=== PATIENT | male | born 2000 | race Caucasian/White ===

== ENCOUNTER 2023-06-18 09:56 | Outpatient (CLI) | payer OTHER, SELFPAY ==
--- NOTE | 2023-06-18 10:15 | CRLHL7_ITS ---
For Patients: As a result of the Century Cures Act, medical imaging exams and procedure reports are released immediately into your electronic medical record. You may view this report before your referring provider. If you have questions, please contact your health care provider. Indication: RT SHOULDER INSTABILITY. Procedure : Informed consent was obtained. The site was marked. Time-out was performed. The skin of the right shoulder was cleansed with ChloraPrep. A sterile drape was placed. 8 cc of 1 percent lidocaine was administered for superficial anesthesia. Subsequently a 22 gauge spinal needle was introduced into the right shoulder joint under intermittent fluoroscopic guidance. Injection of 2 cc nonionic Omnipaque 240 contrast confirmed intra-articular location. Subsequently 11 cc of dilute gadolinium were injected. The needle was removed and hemostasis achieved with direct pressure. A dressing was placed. The patient tolerated the procedure well without immediate complication and was immediately sent to MRI for imaging. Total fluoroscopy time 0.20 minutes. Impression: Successful fluoroscopically guided right shoulder arthrogram for MRI. Dictated by Ceasar Haas MD @ 06/18/2023 3:12:28 PM (Electronically Signed)
--- NOTE | 2023-06-18 11:15 | MR_ITS ---
[address] [address] Phone:?[phone] Fax:?[phone] Referring Physician Information: Juliano Martinez M.D. [address] [facility] [address] Phone:?[phone] Fax:?[phone] Patient:Bhavani Hanson D.O.B:?2000 Sex:?Male Phone:?[phone] [facility] MRN:?[id number] Exam Date:?06/18/2023 EXAM: MR ARTHROGRAM OF THE RIGHT SHOULDER CLINICAL: Right shoulder instability. COMPARISON: None available. TECHNICAL: Exam performed after injection of gadolinium based contrast into the right shoulder. Multiplanar multisequence MRI of the right shoulder was obtained. SEDATION: None. CONTRAST: Intra-articular gadolinium based contrast. FINDINGS: Rotator cuff: Supraspinatus/Infraspinatus: No tendinopathy, tear or atrophy. Teres minor: No tendinopathy, tear or atrophy. Subscapularis: Mild increased signal within the tendon and adjacent muscle is likely reflective of sequelae of direct contrast injection. No tendon disruption or retraction. Bursae: Subacromial-subdeltoid: No significant bursal fluid. Subcoracoid: No significant bursal fluid. Coracoacromial arch: Acromion morphology: Type II. No os acromiale. Acromiohumeral space: Within normal limits. Coracohumeral space: Within normal limits. Biceps tendon, long head: Intraarticular and extraarticular segments are intact without rupture, tendinopathy or displacement. Glenohumeral joint: Contrast distends the joint capsule consistent with successful intra-articular injection. Articular cartilage: Small segment of full-thickness chondral loss involves the posterior glenoid adjacent to posterior labral tearing measuring approximately 5 mm in transverse dimension and 5 mm in cranial caudal dimension as seen on axial series 6 image 21 and coronal series 8 image 18. Remainder of the glenohumeral cartilage appears preserved. Capsule: No evidence of capsular thickening or disruption. Labrum: There is tearing of the superior labrum extending posterior to the biceps anchor as seen on coronal series 9 image 16-17. There is tearing throughout the posterior labrum extending from superior to inferior extending into the far inferior labrum on axial series 6 image 19-24 and coronal series 8 image 17-19. No perilabral cyst identified. Bones: There is minimal marrow edema/possible slight reverse Hill-Sachs impaction involving the anterior humeral head on axial series 6 images 18-19. No additional evidence of fracture and there is no current evidence of dislocation. Acromioclavicular joint: There is increased marrow edema with small cystic or erosive changes seen to involve the distal clavicle at the AC joint. Irregularity and increased signal is also seen to involve the acromioclavicular ligament concerning for sequelae of prior sprain injury. There appears to be mild superior positioning of the distal clavicle in relation to the acromion, however the coracoclavicular ligament is intact. No AC joint widening. IMPRESSION: 1. Tearing throughout the entire posterior labrum extending into the far inferior labrum with a small 5 mm chondral defect seen to involve the posterior glenoid. Tearing is also seen to involve the superior labrum. Minimal marrow edema/possible slight reverse Hill-Sachs impaction injury involving the anterior humeral head could reflect sequelae of posterior glenohumeral dislocation injury. 2. Suspect sequelae of prior AC joint injury. Bone marrow edema and small cystic/erosive changes involving the distal clavicle may reflect changes of arthrosis or distal clavicle osteolysis. 3. Mild increased signal within the subscapularis tendon likely reflects sequelae of direct contrast injection. Rotator cuff tendons otherwise appear intact and unremarkable. 4. Normal appearance of the long head biceps tendon. [facility] Electronically signed on 06/19/2023 7:59:00 AM by Carmelo Aparicio D.O.
== END 2023-06-18 09:57 | disposition home or self-care (01) ==
PROVIDERS: PCP Family Medicine; Visit Provider Family Medicine
DX: M25.311 Other instability, right shoulder (principal); S43.431A Superior glenoid labrum lesion of right shoulder, initial encounter; M89.511 Osteolysis, right shoulder
CPT/HCPCS: 23350; 73222; 77002; A9575

== ENCOUNTER 2024-09-28 08:55 | Emergency (ER) | payer SELFPAY ==
--- OUTSIDE RECORDS SUMMARY | 2024-09-28 08:58 | XMS_ITS ---
Author Organization [facility] Address [address] [place], [place] [id number] Care Team Providers Care Table Hand Name Role Phone Shon Hussain Unavailable [phone] Allergies No Known Allergies REASON FOR VISIT establish care Encounters Encounter Location Date Provider Diagnosis [facility] [address] [place] [id number] 12/21/2023 Hussain Menendez Plan Of Treatment No Information Progress Notes * Yohannes NEVESOB:2000 (24 yo M)Acc No.[id number]:12/21/2023 Progress Notes Patient: Darrin ABDULLAHI Provider: Parul Menendez MD, MPH :2000 A ge:23 Y S ex:Male Date:12/21/2023 Address:[address] [place], [place] [id number] Subjective: * Chief Complaints: * 1 . Establish care. * ROS: G eneral/Constitutional: Denies C hange in appetite. D enies C hills. D enies F atigue. D enies F ever. D enies H eadache. D enies L ightheadedness. D enies S leep disturbance. D enies W eight gain, [ ] pounds, weeks. D enies W eight loss. A llergy/Immunology: Denies B listering of skin. D enies C ongestion.?Denies C ough. D enies H zev. D enies I tching. D enies R todd. D enies S neezing. D enies W atery eyes. D enies W heezing. E NT: Denies B locked ear. D enies D ecreased hearing.?Denies D ecreased sense of smell. D enies D ifficulty swallowing. D enies D ry mouth. D enies E ar pain. D enies H earing screen. D enies N osebleed. Denies R inging in the ears. D enies S inus pain. D enies S ore throat. D enies S wollen glands. C ardiovascular: Denies C hest pain at rest. D enies C hest pain with exertion. D enies C laudication. D enies C yanosis. D enies D ifficulty laying flat. D enies D izziness. D enies D yspnea on exertion. D enies F luid accumulation in the legs. D enies I rregular heartbeat. D enies O rthopnea. D enies P alpitations. D enies S hortness of breath. D enies W eakness. D enies?Weight gain. G astrointestinal: Denies A bdominal pain. D enies B lood in stool.?Denies C hange in bowel habits. D enies C onstipation. D enies D ecreased appetite. D enies D iarrhea. D enies D ifficulty swallowing. D enies E xposure to hepatitis. D enies H eartburn. D enies H ematemesis. D enies N ausea.?Denies R ectal bleeding. D enies V omiting. D enies W eight loss. ? M usculoskeletal: Denies C arpal tunnel. D enies J oint stiffness.?Denies L eg cramps. D enies M uscle aches. D enies P ain in shoulder(s). D enies P ainful joints. D enies S ciatica. D enies S wollen joints. D enies Trauma to arm(s). D enies T rauma to hip(s). D enies T rauma to knee(s). D enies T rauma to ankle(s). D enies W eakness. N eurologic: Denies B alance difficulty. D enies C oordination.?Denies D ifficulty speaking. D enies D izziness. D enies F ainting. D enies G ait abnormality. D enies H eadache. D enies I rritability. D enies Loss of strength. D enies L oss of use of extremity. D enies L ow back pain. D enies M guilherme loss. D enies P ain. D enies S eizures. D enies T ics.?Denies T ingling/Numbness. D enies T ransient loss of vision. D enies T remor. P sychiatric: Denies A nxiety. D enies A uditory/visual hallucinations. D enies D elusions. D enies D epressed mood. D enies D ifficulty sleeping. D enies E ating disorder. D enies L oss of appetite. D enies M ental or Physical abuse. D enies S tressors. D enies S ubstance abuse. D enies S uicidal thoughts. * Medical History: M edical History Verified. * Surgical History: D enies Past Surgical History. * Hospitalization/Major Diagno stic Procedure: D enies Past Hospitalization. * Family History: N o Family History documented.. * Medications: N one * Allergies: N .K.D.A. Objective: * Vitals: Assessment: Plan: * Treatment: * Images: * Electronic signature of Keila Menendez MD on 09/28/2024 at 09:57 AM EDT Sign off status: Pending * Provider: Parul Menendez MD, MPH Date: 0 12/21/2023 Generated for Ty anderson/Nadege/Kaiden on: 0 09/28/2024 09:57 AM EDT
--- OUTSIDE RECORDS SUMMARY | 2024-09-28 08:58 | XMS_ITS | Encounter Summary ---
Author Organization [facility] Address [address] [place] [address] Care Team Providers Care Sound Person Name Role Phone Stefano Musa DO Primary Care Provider [phone] Reason for Visit * Reason Comments Follow-up * Outpatient (Routine) - Pending Review Specialty Diagnoses / Procedures Referred By Contac t Referred To Contact Hand Surgery / Orthopaedic Surgery Diagnoses EST RT SHOULDER / NAGHA Procedures ESTABLISHED PATIENT Stefano Musa DO [address] [place] [address] Phone: tel: fax: Cong Leal MD [address] [address] Phone: tel: fax: Referral ID Status Reason Start Date Expiration Date V isits Requested Visits Authorized [id number] Pending Review 08/14/2024 08/15/2025 12 12 Encounter Details Date Type Department Care Team (Late st Contact Info) Description 08/14/2024 9:00 AM EST Office Visit [facility] [address] [facility], [address]th [place] [address] Cong Leal MD [address] [id number] Labral tear of shoulder, right, initial encounter (Primary Dx); Periscapular pain of right shoulder Social History Tobacco Use Types Packs/Day Years Used Date Smoking Tobacco: Never Smokeless Tobacco: Never Alcohol Use Standard Drinks/Week Comments Yes 0 (1 standard drink = 0.6 oz pur e alcohol) occasional Humiliation, Afraid, Rape, and Kick questionnair e Answer Date Recorded Within the last year, have y ou been afraid of your partner or ex-partner? No 07/06/2023 Within the last year, have y ou been humiliated or emotionally abused in other ways by your partner or ex-partner? No Within the last year, have y ou been kicked, hit, slapped, or otherwise physically hurt by your partner or ex-partner? No 07/06/2023 Within the last year, have y ou been raped or forced to have any kind of sexual activity by your partner or ex-partner? No 07/06/2023 Social Connection and Isolation Panel Answer Date Recorded In a typical week, how many times do you talk on the phone with family, friends, or neighbors? More than three times a week 07/06/2023 How often do you get togethe r with friends or relatives? Three times a week 07/06/2023 How often do you attend chur or hoahaoism services? Patient declined 07/06/2023 Do you belong to any clubs o r organizations such as jehovah's witness groups, unions, fraternal or athletic groups, or school groups? Yes 07/06/2023 How often do you attend meet ings of the clubs or organizations you belong to? More than 4 times per year 07/06/2023 Are you , , di vorced, , never , or living with a partner? Never 07/06/2023 AUDIT-C Answer Date Recorded Q1: How often do you have a drink containing alc ohol? Patient declined 07/06/2023 Q2: How many drinks containi ng alcohol do you have on a typical day when you are drinking? Patient declined 07/06/2023 Q3: How often do you have si x or more drinks on one occasion? Patient declined 07/06/2023 Overall Financial Resource Strain (CARDIA) Answe r Date Recorded How hard is it for you to pa y for the very basics like food, housing, medical care, and heating? Patient declined 07/06/2023 [place] - Occupational Stress Questionnaire Answer Date Recorded Do you feel stress - tense, restless, nervous, or anxious, or unable to sleep at night because your mind is troubled all the time - these days? Not at all 07/06/2023 Exercise Vital Sign Answer Date Recorde d On average, how many days pe r week do you engage in moderate to strenuous exercise (like a brisk walk)? 4 days 07/06/2023 On average, how many minutes do you engage in exercise at this level? 40 min 07/06/2023 Hunger Vital Sign Answer Date Recorded Within the past 12 months, y ou worried that your food would run out before you got the money to buy more. Patient declined Within the past 12 months, t he food you bought just didn't last and you didn't have money to get more. Patient declined PRAPARE - Transportation Answer Date Re corded In the past 12 months, has l ack of transportation kept you from medical appointments or from getting medications? Patient declined 07/06/2023 In the past 12 months, has l ack of transportation kept you from meetings, work, or from getting things needed for daily living? Patient declined 07/06/2023 Housing Stability Vital Sign Answer Bigg e Recorded In the last 12 months, was t here a time when you were not able to pay the mortgage or rent on time? Patient refused 07/06/20 23 Number of Places Lived in the Last Year Not on f ile 07/06/2023 In the last 12 months, was t here a time when you did not have a steady place to sleep or slept in a skilled nursing (including now)? Patient refused 07/06/2023 Caregiver Education and Work Answer Bigg e Recorded Opt Out of Tobacco Outreach No 10/10 Opt Out of Tobacco Outreach No 10/10 Safety and Environment Answer Date Husam rded Opt Out of Tobacco Outreach No 10/10 Opt Out of Tobacco Outreach No 10/10 Opt Out of Tobacco Outreach No 10/10 Opt Out of Tobacco Outreach No 10/10 Caregiver Health Answer Date Recorded Opt Out of Tobacco Outreach No 10/10 Opt Out of Tobacco Outreach No 10/10 Opt Out of Tobacco Outreach No 10/10 Child Education Answer Date Recorded Opt Out of Tobacco Outreach No 10/10 Opt Out of Tobacco Outreach No 10/10 Opt Out of Tobacco Outreach No 10/10 Adolescent Substance Use Answer Date Re corded Opt Out of Tobacco Outreach No 10/10 Opt Out of Tobacco Outreach No 10/10 Opt Out of Tobacco Outreach No 10/10 [place] Short Social Needs Screening - Social Connect ion Answer Date Recorded Would you like help with any of the following needs: food, medicine/medical supplies, transportation, loneliness, housing or utilities? Not on file 11/27/2023 [place] Short Social Needs Screen ing - Medical Financial Resource Strain Answer Date Recorded Would you like help with any of the following needs: food, medicine/medical supplies, transportation, loneliness, housing or utilities? Not on file 07/16/2023 [place] Short Social Needs Screening - Food Insecurit y Answer Date Recorded Would you like help with any of the following needs: food, medicine/medical supplies, transportation, loneliness, housing or utilities? See other domains 06/30/2023 Would you like help with any of the following needs: food, medicine/medical supplies, transportation, loneliness, or housing/utilities? Not on file 06/30/2023 [place] Short Social Needs Screening - Transportation Answer Date Recorded Would you like help with any of the following needs: food, medicine/medical supplies, transportation, loneliness, housing or utilities? Not on file 07/16/2023 [place] Short Social Needs Screening - Housing Answer Date Recorded Would you like help with any of the following needs: food, medicine/medical supplies, transportation, loneliness, housing or utilities? Not on file 07/16/2023 Sex and Gender Information Value Date Recorded Sex Assigned at Not on file Legal Sex Male 7:01 PM EDT Gender Identity Not on file Sexual Orientation Not on file documented as of this encounter Last Filed Vital Signs Vital Sign Reading Time Taken Comments Blood Pressure - - Pulse - - Temperature - - Respiratory Rate - - Oxygen Saturation - - Inhaled Oxygen Concentration - - Weight 118 kg (260 lb) 08/14/2024 8:44 AM EST Height 175.3 cm (5' 9) 08/14/2024 8:44 AM EST Body Mass Index 38.4 08/14/2024 8:44 AM EST documented in this encounter Progress Notes * BANDAR Love - 08/14/2024 9:00 AM EST 1 * BANDAR Love - 08/14/2024 8:42 AM EST CHIEF COMPLAINT: Recheck right shoulder labral repair from August 17, 2023. HISTORY OF PRESENT ILLNESS: Mr. Hanson, a 24-year-old right-hand dominant male who presents almost a year from surgery. He denies fevers or chills. Denies numbness or tingling. He states overall he is doing pretty well regarding the shoulder itself. Has noticed some discomfort around his scapula when he is working out. He states it does bother him and has a hard time sleeping on that side. No other complaints. Denies fevers or chills. Denies numbness or tingling. PHYSICAL EXAMINATION: Patient alert and oriented times 3, in no distress in office, is neurovascularly intact. Sensation intact to light touch. Maintains full range of motion. Rotator cuff strength throughout is 5/5. Does have tenderness to palpation with noted trigger point to or around the periscapular muscles. LABORATORY AND DIAGNOSTIC DATA: No x-rays completed today. IMPRESSION AND PLAN: Mr. Hanson, a 24-year-old right-hand dominant male who presents almost a year from right shoulder labral repair back in August 2023. He is doing well regarding his range of motion and strength. He does have some trigger points to and around the periscapular muscles. Recommended some techniques to help work this out. Patient will follow up on as-needed basis. Dictated By: BANDAR WESTBROOK - [id number] 08/14/2024 09:00:28 AM 08/14/2024 09:10:23 AM Docked: [id number] Receipt Code: [id number] CC: documented in this encounter Plan of Treatment Not on file documented as of this encounter Goals Goal Patient Goal Type Associated Problems Recent Progress Patient-Stated? Author [P.T. LTG] x 12 visits Physical Therapy: Cover Remover Goal No Dena Barrios PT Note: Patient will demonstrate independence in comprehensive HEP to facilitate independence upon discharge. [P.T. LTG] x 12 visits Physical Therapy: Cover Remover Goal No Dena Barrios PT Note: Patient will demonstrate ability to tolerate resistance at end range upright ER and IR to facilitate progress toward senior care goals. [P.T. LTG] x 12 visits Physical Therapy: Nursing Home Goal No Dena Barrios PT Note: Patient will demonstrate ability to complete standard push up without onset of pain to facilitate progress toward resuming activity at prior level. [P.T. STG] x 6 visits Physical Therapy: Short Term Goal No Dena Barrios PT Note: Patient will demonstrate independence in introductory HEP to facilitate progress toward long-term goals. [P.T. STG] x 6 visits Physical Therapy: Short Term Goal No Dena Barrios PT Note: Patient will demonstrate full AROM of the right shoulder without onset of pain to facilitate progress toward senior care goals. documented as of this encounter Visit Diagnoses Diagnosis Labral tear of shoulder, right, initial encounter- Primary Periscapular pain of right shoulder documented in this encounter Care Teams Sound Person Relationship Specialty Start Date End Date Stefano Musa DO [address] [place] [address] PCP - General Family Medicine 06/28/23 documented as of this encounter
--- OUTSIDE RECORDS SUMMARY | 2024-09-28 08:58 | XMS_ITS | Clinical Summary ---
Author Organization [facility] Address [address] [place] [address] Care Team Providers Care Graphics Intern Name Role Phone Stefano Musa Primary Care Provider [phone] Allergies No known active allergies Medications atorvastatin (LIPITOR) 20 mg tablet Take 20 mg by mouth every night at bedtime. Active fenofibrate (TRICOR) 48 mg tablet Take 48 mg by mouth 1 (one) time each day. Active omeprazole (PriLOSEC) [address] capsule Take 20 mg by mouth 1 (one) time each day. Do not crush or chew. Active cholecalciferol (VITAMIN D-3) 5,000 Units tablet Take by mouth. Active famotidine (PEPCID) 40 mg tablet Take by mouth. Active Active Problems No known active problems Encounters Date Type Department Care Team Description 08/14/2024 9:00 AM EST Office Visit [facility] [place] [address] [facility], [address] [place] [address] Cong Leal MD Labral tear of shoulder, right, initial encounter (Primary Dx); Periscapular pain of right shoulder from Last 3 Months Immunizations Name Administration Dates Next Due DTaP (CVX 20) 08/11/2006, 4,01/09/2003,11/02,2002 HPV, Quadrivalent (CVX 62) 04/19/2015,01/18/2014 Hep A, Unspecified (CVX 85) 08/15/2010,0 11/29/2009,02/09/2006,08/11 Hep B / HiB (CVX 51) 2002 Hep B, Unspecified 01/09/2003,2002 HiB 06/22/2003,04/05/2003,2002 IPV (CVX 10) 08/11/2006, 3,2002,08/16 Influenza, Quadrivalent, PF (CVX 150) 06/04/2021 ,06/29/2016,04/19/2015 Influenza, seasonal, injecta ble, PF (CVX 140) 07/14/2024,04/25/2018,07/17/2017 MMR (CVX 3) 08/11/2006,06/22/2003 Meningococcal B Vaccine, Rec ombinant (CVX 162) 12/18/2020,02/04/2019 Meningococcal MCV4, Unspecif ied (CVX 147) 01/18/2014 Meningococcal MCV4P (CVX 114) 06/29/2016 Pneumococcal Conjugate PCV 7 (CVX 100) 3,04/05/2003,2002 Tdap (CVX 115) 02/23/2014 Varicella (CVX 21) 08/11/2006,10/08/2003 Family History Medical History Relation Name Comments Cancer Maternal Grandmother Ag[place] Diabetes Maternal Grandmother Agata Relation Name Status Comments Maternal Grandmother Agata Social History Tobacco Use Types Packs/Day Years Used Date Smoking Tobacco: Never Smokeless Tobacco: Never Tobacco Cessation:Counseling Given: Not Answered Alcohol Use Standard Drinks/Week Comments Yes 0 [...] 07/06/2023 How often do you attend chur ch or episcopalian services? Patient declined 07/06/2023 Do you belong to any clubs o r organizations such as anabaptist groups, unions, fraternal or athletic groups, or [...] medical care, and heating? Patient declined 07/06/2023 [facility] - Occupational Stress Questionnaire Answer Date Recorded [...] place to sleep or slept in a correction (including now)? Patient refused 07/06/2023 Caregiver Education [...] on file Sexual Orientation Not on file Last Filed Vital Signs Vital Sign Reading Time Taken Comments Blood Pressure 118/82 08/17/2023 3:35 PM EST Pulse 99 08/17/2023 3:35 PM EST Temperature 37 C (98.6 F) 08/17/2023 8:52 AM EST Respiratory Rate 20 08/17/2023 3:35 PM EST Oxygen Saturation 99% 08/17/2023 3:35 PM EST Inhaled Oxygen Concentration - - Weight 118 kg (260 lb) 08/14/2024 8:44 AM EST Height 175.3 cm (5' 9) 08/14/2024 8:44 AM EST Body Mass Index 38.4 08/14/2024 8:44 AM EST Plan of Treatment Health Maintenance Due Date Last Done Comments Hepatitis C Screening 2002 Depression Screening 2014 DTaP,Tdap,and Td Vaccines (7 - Td or Tdap) 02/24/2024 02/23/2014, 08/11/2006, 10/08/2003, Additional history exists COVID-19 Vaccine ( season) 2024 06/30/2022, 06/09/2021, 11/16/2020, Additional history exists Diabetes Screening 12/30/2026 12/31/2023 HIV Screening 12/30/2026 12/31/2023 RSV women or 60 years and older (1 - 1-dose 75+ series) 2077 Hepatitis B Vaccines Completed 01/09/2003, 2002, 2002 HIB Vaccines Completed 06/22/2003, 03/13, 2002, Additional history exists Pneumococcal Vaccine: Pediatrics (0 to 5 Years) and At-Risk Patients (6 to 49 Years) Aged Out 06/22/2003, 04/05/2003, 2002 No longer eligible based on patient's age to complete this topic IPV Vaccines Completed 08/11/2006, 07/2002, 2002, Additional history exists MMR Vaccines Completed 08/11/2006, 06/22/2003 Varicella Vaccines Completed 08/11/2006, 10/08/2003 Hepatitis A Vaccines Completed 08/15/2010, 11/29/2009, 02/09/2006, Additional history exists HPV Vaccines Completed 04/19/2015, 01/18/2014 Meningococcal ACWY Aged Out 06/29/2016, 01/18/2014 No longer eligible based on patient's age to complete this topic Meningococcal B Vaccine Completed 12/18/2020, 02/04 Lipid Panel Discontinued 12/31/2023 Influenza Vaccine Completed 07/14/2024, , 04/25/2018, Additional history exists RSV patients under 20 months Aged Out No longer eligible based on patient's age to complete this topic Goals Goal Patient Goal Type Associated Problems Recent Progress Patient-Stated? Author [P.T. LTG] x 12 visits Physical Therapy: Usp Goal No Dena Barrios, PT Note: Patient will demonstrate independence in comprehensive HEP to facilitate independence upon discharge. [P.T. 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 [P.T. LTG] x 12 visits Physical Therapy: Copy Preparer Goal No Dena Barrios, PT Note: Patient will demonstrate ability to complete standard push up without onset of pain to facilitate progress toward resuming activity at prior level. [P.T. STG] x 6 visits Physical Therapy: Short Term Goal No Dena Barrios, PT Note: Patient will demonstrate independence in introductory HEP to facilitate progress toward long-term goals. [P.T. 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 Medical Devices Implanted Type Area [employer] Boatswain'S Mate Device Identifier Shelf Expiration Date Model / Serial / Lot [place] Suture Fibertak 1.8mm Knotless Soft Gen2 - Sna - [id number] Implanted:Qt y: 3 on 08/17/2023 by Cong Leal MD at [facility] - Other Right: Shoulder ARTHREX [id number] 05/11/2028 AR-3636 / NA / [id number] Insurance AMB[employer] Care Teams Graphics Intern Relationship Specialty Start Date End Date Stefano Musa DO [address] [place] [address] PCP - General Family Medicine 06/28/23
--- OUTSIDE RECORDS SUMMARY | 2024-09-28 08:58 | XMS_ITS | Patient Health Record ---
Author Organization [facility] Address [address] [facility] [address] [place] [address] Care Team Providers Care Oil Transport Driver Name Role Phone Stefano Musa Unavailable [phone] Allergies No Known Allergies Reason For Referral No Information Medications Medication SIG (Take, Route, Frequency, Duration) Notes Start Date End Date Status Famotidine 40 MG 1 tablet at bedtime Orally Once a day for 90 days 01/26/2023 Not-Taking Atorvastatin Calcium 10 MG 1 tablet Orally Once a day for 90 days Active Omeprazole 20 MG 1 capsule 30 minutes before morning meal Orally Once a day for 90 days 01/26/2023 Not-Taking Famotidine 40 MG 1 tablet at bedtime Orally Once a day for 90 days Active Cetirizine HCl 10 MG 1 tablet Orally Onc e a day for 90 days 01/26/2023 Active Fenofibrate 160 MG 1 tablet Orally Once a day for 90 days 02/02/2023 Active Gemfibrozil 600 MG 1 tablet 30 minutes before morning and evening meals Orally Twice a day for 90 days 01/26/2023 Not-Taki ng Omeprazole 20 MG 1 capsule 30 minutes before morning meal Orally Once a day for 90 days Active Atorvastatin Calcium 10 MG 1 tablet Orally Once a day for 90 days 01/26/2023 Not-Taking Claritin 10 MG 1 tablet Orally Once a day. When need Not-Taking Gemfibrozil 600 MG 1 tablet 30 minutes before morning and evening meals Orally Twice a day Active Fluticasone Propionate 93 MCG/ACT 2 sprays (1 spray in each nostril) Nasally Twice a day for 90 days 01/26/2023 Not-Taki ng Social History Tobacco Use: Social History Observation Description Date Details (start date - stop date) Never Smoker NA - NA Tobacco Use/Smoking Question Answer Notes Are you a nonsmoker Alcohol Screen (Audit-C) Question Answer Notes Did you have a drink containing alcohol in the p ast year? No Points 0 Interpretation Negative Tobacco use other than smoking: Question Answer Notes Are you an other tobacco user? No Problems Problem Type SNOMED Code ICD Code Onset Dates Problem Status W/U Status Risk Notes Problem 977084952 Mixed hyperlipid emia (E78.2) Active confirmed Problem Body mass index 35.00 to 39.99 (46931017595 4105) Body mass index (BMI) 38.0-38.9, adult (Z68.38) 02/05/20 23 Active confirmed Problem 214339542 Gastroesophageal reflux disease without esophagitis (K21.9) Active confirmed Problem 70517216 Vitamin D defici ency (E55.9) Active confirmed Problem 832330425 Hypertriglycerid emia (E78.1) Active confirmed Problem 846848667 Seasonal allergi c rhinitis due to other allergic trigger (J30.89) Active confirmed Plan Of Treatment Pending Test Test Name Order Date PHQ9 01/26/2023 Future Test Test Name Order Date Vitamin D, 1,25 + 25-Hydroxy 06/28/2023 CBC With Differential/Platelet Vitamin B12 and Folate 08/05/2023 Hemoglobin A1c 08/05/2023 Urinalysis, Routine 08/05/2023 Lipid Panel 08/05/2023 Vitamin D, 1,25 + 25-Hydroxy 08/05/2023 CMP14+[id number] 08/05/2023 T3F+T4F+TSH 08/05/2023 Insurance Providers Payer Name Payer Address Payer Phone Subscriber Number Group Number Insured Name Patient Relationship to Insured Coverage Start Date Coverage End Date [id number] [address] [address] [place] [id number] [phone] [id number] Darrin Hanson Self - patient is the insured Medical (General) History Medical History History ICD Code GERD obesity Hypercholesterolemia / Dyslipidemia
--- OUTSIDE RECORDS SUMMARY | 2024-09-28 08:58 | XMS_ITS ---
Author Organization [facility] Address [address] [facility] [address] [place] [address] Care Team Providers Care Deckhand Engineer Name Role Phone Stefano Toney Unavailable [phone] Allergies No Known Allergies Reason For Referral Reason Patient injured his right shoulder playing football in college and had an MRI done which shows tearing throughout the entire posterior labrum extending into the far labrum with a small 5 mm chondral defectseen to involve the posterior glenoid. Tearing also seen in the superior labrum. There is a slight reverse Hill-Sachs impaction injury involving the anterior humeral head. injury also noted of the distal clavicle. Patient prefers Dr. Phipps in [facility] at [address] [place] [address]. Diagnosis 1 Acute pain of right shoulder (M25.511) Referral Organization [facility] Referring Provider First Name Stefano Referring Provider Last Name Lencho Referring Provider Speciality [facility] Referred Provider DOUG PHIPPS Referred Provider Specialty XOrthopedic Procedure 1 New Patient (71042) Procedure 2 Follow-up (20362) Clinical Notes Mj Gerber 023 08:06:50 AM >No Auth Needed Fax Buzz Holden Pedro 06/29/2023 01:59:38 PM >Patient informed Referral Priority Urgent REASON FOR VISIT f/up Medications Medication SIG (Take, Route, Frequency, Duration) Notes Start Date End Date Status Famotidine 40 MG 1 tablet at bedtime Orally Once a day for 90 days 01/26/2023 Not-Taking Omeprazole 20 MG 1 capsule 30 minutes before morning meal Orally Once a day for 90 days 01/26/2023 Not-Taking Fenofibrate 160 MG 1 tablet Orally Once a day for 90 days 02/02/2023 Active Ergocalciferol 1.25 MG (33372 UT) 1 capsule Orally once a week for 90 days 02/02/2023 12/25/2023 Active Gemfibrozil 600 MG 1 tablet 30 minutes before morning and evening meals Orally Twice a day Active Atorvastatin Calcium 10 MG 1 tablet Orally Once a day for 90 days Active Famotidine 40 MG 1 tablet at bedtime Orally Once a day for 90 days Active Cetirizine HCl 10 MG 1 tablet Orally Onc e a day for 90 days 01/26/2023 Active Gemfibrozil 600 MG 1 tablet 30 minutes before morning and evening meals Orally Twice a day for 90 days 01/26/2023 Not-Taking Atorvastatin Calcium 10 MG 1 tablet Orally Once a day for 90 days 01/26/2023 Not-Taking Omeprazole 20 MG 1 capsule 30 minutes before morning meal Orally Once a day for 90 days Active Claritin 10 MG 1 tablet Orally Once a day. When need Not-Taking Fluticasone Propionate 93 MCG/ACT 2 sprays (1 spray in each nostril) Nasally Twice a day for 90 days 01/26/2023 Not-Taking Social History Alcohol Screen (Audit-C) Question Answer Notes Did you have a drink containing alcohol in the p ast year? No Points 0 Interpretation Negative Vital Signs Temperature 97.5 degrees Fahrenheit 06/28/20 23 Blood pressure systolic 130 mm Hg 06/28/20 23 Blood pressure diastolic 80 mm Hg 023 Heart Rate 84 /min 06/28/2023 Respiratory Rate 18 /min 06/28/2023 Height 5'8'' ft 06/28/2023 Weight 264 lbs 06/28/2023 BMI 40.14 kg/m2 06/28/2023 Oximetry 99 % 06/28/2023 Weight-kg 119.75 kg 06/28/2023 Encounters Encounter Location Date Provider Diagnosis [facility] (DO NOT USE) [address] [facility] [place] [address] 06/28/2023 Stefano Toney Seasonal allergic rh initis due to other allergic trigger J30.89 ; Acute pain of right shoulder M25.511 ; Hypertriglyceridemia E78.1 ; Gastroesophageal reflux disease without esophagitis K21.9 ; Vitamin D deficiency E55.9 ; Screening for STD (sexually transmitted disease) Z11.3 and Screening for diabetes mellitus Z13.1 Assessments Encounter Date Diagnosis (ICD Code) Assessment Notes Treatment Notes Treatment Clinical Notes Section Notes 06/28/2023 Acute pain of right shoulder (ICD-10 - M25.511) Patient is seen for his right shoulder pain and he injured his right shoulder playing football in [place] in college. Patient had an MRI done in [place] which showed a torn labrum and problems with his glenoid. He also had some findings on his distal clavicle. Patient will be referred to orthopedic surgery. Patient prefers Dr. Hayes from the [facility]. 06/28/2023 Seasonal allergic rhinitis due to other allergic trigger (ICD-10 - J30.89) Patient has allergic rhinitis and will continue his cetirizine 10 mg once a day. Refill was given. 06/28/2023 Hypertriglyceridemia (ICD-10 - E78.1) Patient has mixed hyperlipidemia and severe hypertriglycerid emia. Patient will be given refills of his atorvastatin and his fenofibrate. Patient's labs will be redrawn in the next couple weeks. 06/28/2023 Gastroesophageal ref lux disease without esophagitis (ICD-10 - K21.9) Patient's GERD symptoms are controlled with famotidine 40 mg once a day and omeprazole 40 mg once a day. Patient will continue these. 06/28/2023 Vitamin D deficiency (ICD-10 - E55.9) Patient has vitamin D deficiency and will continue his ergocalciferol once a week. 06/28/2023 Screening for STD (sexually transmitted disease) (ICD-10 - Z11.3) 06/28/2023 Screening for diabet es mellitus (ICD-10 - Z13.1) Plan Of Treatment Medication Medication Name Sig Start Date Stop Date Notes Fenofibrate 160 MG 1 tablet Orally Once a day for 90 days 02/02/2023 Ergocalciferol 1.25 MG (5000 0 UT) 1 capsule Orally once a week for 90 days 02/02/2023 12/25/2023 Atorvastatin Calcium 10 MG 1 tablet Oral ly Once a day for 90 days Famotidine 40 MG 1 tablet at bedtime Orally Once a day for 90 days Cetirizine HCl 10 MG 1 tablet Orally Onc e a day for 90 days 01/26/2023 Omeprazole 20 MG 1 capsule 30 minutes before morning meal Orally Once a day for 90 days Future Test Test Name Order Date Vitamin D, 1,25 + 25-Hydroxy 06/28/2023 Referrals Referral Date Details 06/28/2023 06/28/2023, Patient injured his right shoulder playing football in college and had an MRI done which shows tearing throughout the entire posterior labrum extending into the far labrum with a small 5 mm chondral defectseen to involve the posterior glenoid. Tearing also seen in the superior labrum. There is a slight reverse Hill-Sachs impaction injury involving the anterior humeral head. injury also noted of the distal clavicle. Patient prefers Dr. Phipps in [facility] at [address] [place] [address] DOUG PHIPPS Next Appt Details Follow Up: 3 Weeks, Reason: lab results Progress Notes * Yohannes NEVESOB:2000 (23 yo M)Acc No.[id number]:06/28/2023 Progress Notes Patient: Darrin ABDULLAHI Provider: Nancy TONEY DO :2000 A ge:23 Y S ex:Male Date:06/28/2023 Phone: Address:[address] [place] [address], [facility], [id number] Subjective: * Chief Complaints: * F /up * HPI: H istory of Present Illness: Patient is seen for follow-up visit to discuss an MRI results that he had done up in [place] when he was in college. Patient has not been able to get his labs done yet but will do them here this week. Patient would also like added to the labs test for STDs. Patient was playing football up in [place] college and he injured his right shoulder. The MRI shows complete labrum tear and some issues with his clavicle. Patient will be referred to orthopedic surgery he would like to see Dr. Hayes from the [facility]. Referral was placed and lab work was ordered. Patient will also be given refills of his medications as he is starting to run out of them. P re Visit Planning: Not pending Specialist Notes A s of 1 08/25/2022 * ROS: R akilw of Systems: Constitutional D enies:, Chills, Night sweats, Fever. E yes D enies:, Blurred Vision, Discharge, Redness, Pain. O tolaryngologic D enies:, Epistaxis, Ear pain, rhinorrhea. C ardiovascular D enies:, Chest pain, Shortness of breath, Palpitations. R espiratory D enies:, Wheezing, Shortness of breath, Cough. G astrointestinal D enies:, Nausea, Vomiting, Constipation, Heartburn, Diarrhea, Abdominal pain. G enitourinary D enies:, Dysuria, Polyuria, Hematuria. M usculoskeletal R eports: right shoulder pain with some minor limitations in motion.. N eurological D enies:, Dizziness, Confusion, Memory loss, Numbness/Tingling, Focal numbness or weakness. E ndocrine?Denies:, Polyphagia, Polydipsia, Polyuria. B reast D enies:, Pain, Swelling, Lump or mass, Skin changes. P sychiatry D enies:, Depressed mood, Anxiety, Suicidal ideation, Homicidal ideation. S kin D enies:, Skin rash, Lesions, Wound. * Medical History: * Surgical History: D enies Past Surgical History * Hospitalization/Major Diagno stic Procedure: D enies Past Hospitalization * Family History: M other: alive 52 yrs. F ather: alive 55 yrs. * Social History: D rugs/Alcohol: D rugs H ave you used drugs other than those for medical reasons in the past 12 months? N o Alcohol Screen (Audit-C) D id you have a drink containing alcohol in the past year? N o P oints 0 I nterpretation N egative Caffeine I ntake: n one Do you smoke marijuana?: Denies. Do you drink alcohol?: No. * Medications: T akingFenofibrate 160 MG Tablet 1 tablet Orally Once a day Ergocalciferol 1.25 MG (00201 UT) Capsule 1 capsule Orally once a week , stop date 01/28/2024Gemfibrozil 600 MG Tablet 1 tablet 30 minutes before morning and evening meals Orally Twice a day Famotidine 40 MG Tablet 1 tablet at bedtime Orally Once a day Atorvastatin Calcium 10 MG Tablet 1 tablet Orally Once a day Omeprazole 20 MG Capsule Delayed Release 1 capsule 30 minutes before morning meal Orally Once a day Cetirizine HCl 10 MG Tablet 1 tablet Orally Once a day Taking Fenofibrate 160 MG Tablet 1 tablet Orally Once a day Taking Ergocalciferol 1.25 MG (75828 UT) Capsule 1 capsule Orally once a week , stop date 01/28/2024Taking Gemfibrozil 600 MG Tablet 1 tablet 30 minutes before morning and evening meals Orally Twice a day Taking Famotidine 40 MG Tablet 1 tablet at bedtime Orally Once a day Taking Atorvastatin Calcium 10 MG Tablet 1 tablet Orally Once a day Taking Omeprazole 20 MG Capsule Delayed Release 1 capsule 30 minutes before morning meal Orally Once a day Taking Cetirizine HCl 10 MG Tablet 1 tablet Orally Once a day Not-TakingFluticasone Propionate 93 MCG/ACT Exhaler Suspension 2 sprays (1 spray in each nostril) Nasally Twice a day Claritin 10 MG Tablet 1 tablet Orally Once a day. When need Atorvastatin Calcium 10 MG Tablet 1 tablet Orally Once a day Gemfibrozil 600 MG Tablet 1 tablet 30 minutes before morning and evening meals Orally Twice a day Omeprazole 20 MG Capsule Delayed Release 1 capsule 30 minutes before morning meal Orally Once a day Famotidine 40 MG Tablet 1 tablet at bedtime Orally Once a day Medication List reviewed and reconciled with the patientNot- Taking Fluticasone Propionate 93 MCG/ACT Exhaler Suspension 2 sprays (1 spray in each nostril) Nasally Twice a day Not-Taking Claritin 10 MG Tablet 1 tablet Orally Once a day. When need Not-Taking Atorvastatin Calcium 10 MG Tablet 1 tablet Orally Once a day Not-Taking Gemfibrozil 600 MG Tablet 1 tablet 30 minutes before morning and evening meals Orally Twice a day Not-Taking Omeprazole 20 MG Capsule Delayed Release 1 capsule 30 minutes before morning meal Orally Once a day Not-Taking Famotidine 40 MG Tablet 1 tablet at bedtime Orally Once a day Medication List reviewed and reconciled with the patient * Allergies: N .K.D.A.no[Allergies Verified] Objective: * Vitals: T emp:97.5F, HR:84/min, RR:18/min, BP:130/80mm Hg, Wt:264lbs, Ht:5'8'', BMI:40.14Index, Oxygen sat %:99%, Pain scale:01-10, Wt-k.75 kg. * Examination: - Exam: GENERAL APPEARANCE L ooks well nourished, Well developed, No acute distress. HEAD N ormo-cephalic, Atraumatic. EYES P upils equal, round and symmetric, Clear sclera. EARS B oth ears, Auditory canals clear, Tympanic membranes intact, normal TMs with good light reflex. NOSE N dionne patent, No nasal discharge. ORAL CAVITY M ucous membranes moist, No lesions, Tongue in midline, No tongue lesions observed. THROAT N o erythema, no exudates, vesicles or ulcers. NECK/THYROID S upple, non tender, no jugular venous distension, No cervical lymphadenopathy. SKIN N o rashes, no lesions. HEART R egular rate and rhythm, no murmurs, rubs or gallops. LUNGS C lear to auscultation bilaterally, no wheezing, rales, rhonchi, no exaggerated use of accessory muscles on inspiration. ABDOMEN N o skin abnormalities, non tender, non distended, no rigidity, no masses, Normal bowel sounds, soft, nondistended, no masses or hepatosplenomegaly, non-tender. BACK N o costovertebral angle (CVA) tenderness. MUSCULOSKELETAL P atient has pain to palpation of right shoulder at the anterior aspect.. EXTREMITIES N o clubbing, cyanosis or edema. PERIPHERAL PULSES n ormal pedal and radial pulses. NEUROLOGIC N o focal neurological deficits noted, Alert and oriented x 3, Cranial nerves 2-12 grossly intact, Motor strength 5/5 all extremities. PSYCH A &O x 3, cooperative with exam, good eye contact, speech is clear, judgment and insight is adequate, denies SI or HI. Therapeutic Interventions: Assessment: * Assessment: 1. A cute pain of right shoulder - M25.511 (Primary) 2 . S easonal allergic rhinitis due to other allergic trigger - J30.89 3 . H ypertriglyceridemia - E78.1 4 . G astroesophageal reflux disease without esophagitis - K21.9 5 . V itamin D deficiency - E55.9 6 . S creening for STD (sexually transmitted disease) - Z11.3 7 . S creening for diabetes mellitus - Z13.1 Plan: * Treatment: 2. S easonal allergic rhinitis due to other allergic trigger Refill Cetirizine HCl Tablet, 10 MG, 1 tablet, Orally, Once a day, 90 days, 90, Refills 1. ? Clinical Notes: Patient has allergic rhinitis and will continue his cetirizine 10 mg once a day. Refill was given. 3. H ypertriglyceridemia Refill Fenofibrate Tablet, 160 MG, 1 tablet, Orally, Once a day, 90 days, 90, Refills 1; R efill Atorvastatin Calcium Tablet, 10 MG, 1 tablet, Orally, Once a day, 90 days, 90, Refills 1. ? L AB: Hemoglobin A1c (Ordered for 06/28/2023) L AB: CMP14+eGFR (Ordered for 06/28/2023) L AB: CBC With Differential/Platelet (Ordered for 06/28/2023) L AB: T3F+T4F+TSH (Ordered for 06/28/2023) L AB: Magnesium, Serum (Ordered for 06/28/2023) L AB: Jennifer+Lipase (Ordered for 06/28/2023) L AB: Lipid Panel (Ordered for 06/28/2023) L AB: Vitamin D, 1,25 + 25-Hydroxy (Ordered for 06/28/2023) L AB: Vitamin B12 and Folate (Ordered for 06/28/2023) L AB: Urinalysis, Routine (Ordered for 06/28/2023) Clinical Notes: Patient has mixed hyperlipidemia and severe hypertriglyceridemia. Patient will be given refills of his atorvastatin and his fenofibrate. Patient's labs will be redrawn in the next couple weeks. 4. G astroesophageal reflux disease without esophagitis Refill Famotidine Tablet, 40 MG, 1 tablet at bedtime, Orally, Once a day, 90 days, 90, Refills 1;?Refill Omeprazole Capsule Delayed Release, 20 MG, 1 capsule 30 minutes before morning meal, Orally, Once a day, 90 days, 90, Refills 1. Clinical Notes: Patient's GERD symptoms are controlled with famotidine 40 mg once a day and omeprazole 40 mg once a day. Patient will continue these. 5. V itamin D deficiency Refill Ergocalciferol Capsule, 1.25 MG (94729 UT), 1 capsule, Orally, once a week, 90 days, 12, Refills 1. L AB: Hemoglobin A1c (Ordered for 06/28/2023) L AB: CMP14+eGFR (Ordered for 06/28/2023) L AB: CBC With Differential/Platelet (Ordered for 06/28/2023) L AB: T3F+T4F+TSH (Ordered for 06/28/2023) L AB: Magnesium, Serum (Ordered for 06/28/2023) L AB: Jennifer+Lipase (Ordered for 06/28/2023) L AB: Lipid Panel (Ordered for 06/28/2023) L AB: Vitamin D, 1,25 + 25-Hydroxy (Ordered for 06/28/2023) L AB: Vitamin B12 and Folate (Ordered for 06/28/2023) L AB: Urinalysis, Routine (Ordered for 06/28/2023) Clinical Notes: Patient has vitamin D deficiency and will continue his ergocalciferol once a week.? 6. S creening for STD (sexually transmitted disease) L AB: RPR w/reflex to TrepSure (Ordered for 06/28/2023) L AB: HSV 1 and 2 Ab, IgG (Ordered for 06/28/2023) L AB: HIV p24 Antigen/Antibody With Reflex to Confirmation (Ordered for 06/28/2023) L AB: Chlamydia trachomatis,Neisseria gonorrhoeae, and Trichomonas vaginalis, BURAK (Ordered for 06/28/2023) 7. S creening for diabetes mellitus L AB: Hemoglobin A1c (Ordered for 06/28/2023) L AB: CMP14+eGFR (Ordered for 06/28/2023) L AB: CBC With Differential/Platelet (Ordered for 06/28/2023) L AB: T3F+T4F+TSH (Ordered for 06/28/2023) L AB: Magnesium, Serum (Ordered for 06/28/2023) L AB: Jennifer+Lipase (Ordered for 06/28/2023) L AB: Lipid Panel (Ordered for 06/28/2023) L AB: Vitamin D, 1,25 + 25-Hydroxy (Ordered for 06/28/2023) L AB: Vitamin B12 and Folate (Ordered for 06/28/2023) L AB: Urinalysis, Routine (Ordered for 06/28/2023) * Procedure Codes: * Follow Up: 3 Weeks (Reason: lab results) * * Sign off status: Completed true * Provider: Nancy TONEY DO Date: 08/29/2022 Generated for Ty anderson/Nadege/Scarlettitting on: 0 09/28/2024 09:57 AM EDT History and Physical Notes * HPI (History of Present Illness) Category Sub-Category Detail Notes Category Not es History of Present Illness Patient is seen for follow-up visit to discuss an MRI results that he had done up in [place] when he was in college. Patient has not been able to get his labs done yet but will do them here this week. Patient would also like added to the labs test for STDs. Patient was playing football up in [place] college and he injured his right shoulder. The MRI shows complete labrum tear and some issues with his clavicle. Patient will be referred to orthopedic surgery he would like to see Dr. Hayes from the [facility]. Referral was placed and lab work was ordered. Patient will also be given refills of his medications as he is starting to run out of them. Pre Visit Planning Not pending Specialist Notes As of: 06/24/2023 Examination Category Sub-Category Detail Notes Category Not es -Exam GENERAL APPEARANCE Looks well no urished, Well developed, No acute distress HEAD Normo-cephalic, Atra umatic EYES Pupils equal, round and symmetric, Clear sclera EARS Both ears, Auditory canals clear, Tympanic membranes intact, normal TMs with good light reflex ORAL CAVITY Mucous membranes michelle st, No lesions, Tongue in midline, No tongue lesions observed THROAT No erythema, no exud ates, vesicles or ulcers NECK/THYROID Supple, non tender, no jugular venous distension, No cervical lymphadenopathy HEART Regular rate and rhy thm, no murmurs, rubs or gallops SKIN No rashes, no lesion s LUNGS Clear to auscultatio n bilaterally, no wheezing, rales, rhonchi, no exaggerated use of accessory muscles on inspiration ABDOMEN No skin abnormalitie s, non tender, non distended, no rigidity, no masses, Normal bowel sounds, soft, nondistended, no masses or hepatosplenomegaly, non-tender NEUROLOGIC No focal neurologica l deficits noted, Alert and oriented x 3, Cranial nerves 2-12 grossly intact, Motor strength 5/5 all extremities NOSE Nares patent, No corinna al discharge BACK No costovertebral an gle (CVA) tenderness MUSCULOSKELETAL Patient has pain to palpation of right shoulder at the anterior aspect. EXTREMITIES No clubbing, cyanosi s or edema PERIPHERAL PULSES normal pedal and rad ial pulses PSYCH A&O x 3, cooperative with exam, good eye contact, speech is clear, judgment and insight is adequate, denies SI or HI Consultation Request Notes Referral Date Referring Provider Referred Provider Not es 06/28/2023 Stefano Toney BRETT Patient [place] his right shoulder playing football in college and had an MRI done which shows tearing throughout the entire posterior labrum extending into the far labrum with a small 5 mm chondral defectseen to involve the posterior glenoid. Tearing also seen in the superior labrum. There is a slight reverse Hill-Sachs impaction injury involving the anterior humeral head. injury also noted of the distal clavicle. Patient prefers Dr. Phipps in [facility] at [address] [place] [address].
--- OUTSIDE RECORDS SUMMARY | 2024-09-28 08:58 | XMS_ITS ---
Author Organization [employer] Address [address] [facility] [address] [place] [address] Care Team Providers Care News Technical Director Name Role Phone Stefano Toney [phone] Encounters Encounter Location Date Provider Diagnosis [address] [place] (DO NOT USE) [address] [facility] [place] [address] 07/16/2023 Stefano Toney Plan Of Treatment No Information Progress Notes * Yohannes NEVESOB:2000 (24 yo M)Acc No.[id number]:07/16/2023 UNLOCKED PROGRESS NOTE Patient: Darrin ABDULLAHI Provider: Nancy TONEY DO :2000 A ge:23 Y S ex:Male Date:07/16/2023 Phone: Address:[address] [place] [address] [id number] Subjective: * Chief Complaints: * * Medical History: Objective: * Vitals: * Physical Examination: Assessment: Plan: * Treatment: * * Electronic signature of Kaleb oTney DO on 09/28/2024 at 09:57 AM EDT Sign off status: Pending * Provider: Nancy TONEY DO Date: 0 07/16/2023 Generated for Shilai ng/Farajatg/eTransmitting on: 0 09/28/2024 09:57 AM EDT
--- OUTSIDE RECORDS SUMMARY | 2024-09-28 08:58 | XMS_ITS | Clinical Summary ---
Author Organization [facility] Address [address] [place] [address] Care Team Providers Care Radiography Technician Name Role Phone Krysta Stinson APRN, RN Primary Care Provider [phone] Allergies No known active allergies Medications Medication Sig Dispensed Refills Start Date End Date Status albuterol 108 (90 Base) MCG/ACT inhaler Inhale 2 puffs every 6 (six) hours if needed for wheezing. 6.7 g 07/06/2022 Active Additional Information Patient not taking.Reported on 12/31/2023 fenofibrate (Triglide) 160 MG tabletIndications:E ncounter to establish care,Mixed hyperlipidemia Take 1 tablet (160 mg total) by mouth 1 (one) time each day. 30 tablet 3 12/31/2023 Active fluticasone (Flonase) 50 MCG/ACT nasal sprayIndications:Se asonal allergies,Nasal congestion Administer 2 sprays into each nostril 1 (one) time each day for 14 days. Shake gently. Before first use, prime pump. After use, clean tip and replace cap. 16 g 12/31/2023 Active atorvastatin (Lipitor) 10 MG tabletIndications:M ixed hyperlipidemia,Enco unter to establish care Take 2 tablets (20 mg total) by mouth 1 (one) time each day. 180 tablet 1 01/24/2024 Active cetirizine (ZyrTEC) 10 MG tablet Take 1 tablet (10 mg total) by mouth 1 (one) time each day. For 90 Days 03/18/2023 3 Discontinu ed( ) Active Problems Patient Care Coordination No te Formatting of this note migh t be different from the original. SMR-Insurance Alerts: SMR:Medicare - Medicare Secondary, No LT if Neuropathy, Neuritis or Neuroma, No Test and Measures and Group Therapy(TPG) together, 8 vsts after Eval, then Progress Summary, Acupuncture covered, signature required No known active problems Family History Medical History Relation Name Comments Hyperlipidemia Father high tryclycerides Father Cancer Maternal Grandmother Allergies Mother Hyperlipidemia Mother high triyclycerides Mother pre diabetes Mother Relation Name Status Comments Father Maternal Grandmother Mother Social History Tobacco Use Types Packs/Day Years Used Date Smoking Tobacco: Never Smokeless Tobacco: Never Alcohol Use Standard Drinks/Week Comments Never 0 (1 standard drink = 0.6 oz pur e alcohol) Sex and Gender Information Value Date Recorded Sex Assigned at Not on file Gender Identity Not on file Sexual Orientation Not on file Last Filed Vital Signs Vital Sign Reading Time Taken Comments Blood Pressure 142/91 12/31/2023 12:16 PM EDT Pulse 93 12/31/2023 12:16 PM EDT Temperature 36.7 C (98.1 F) 07/06/2022 4:02 PM EST Respiratory Rate 16 07/06/2022 4:02 PM EST Oxygen Saturation 97% 07/06/2022 4:02 PM EST Inhaled Oxygen Concentration - - Weight 126 kg (278 lb) 12/31/2023 12:16 PM EDT Height 175.3 cm (5' 9) 12/31/2023 12:16 PM EDT Body Mass Index 41.05 12/31/2023 12:16 PM EDT Plan of Treatment Health Maintenance Due Date Last Done Comments Annual Physical 12/12/2004 Obesity Intervention 2008 Pneumococcal: Pediatrics (0 to 5 Yrs) and At-Risk Patients (6 to 49 Years) (1 of 1 - PPSV23) 2008 06/22/2003, 04/05/2003, 2002 DTaP/Tdap/Td Vaccines (7 - Td or Tdap) 02/24/2024 02/23/2014, 08/11/2006, 10/08/2003, Additional history exists COVID-19 Vaccine ( - season) 2024 Influenza Vaccine (#1) 2024 , 04/25/2018, 07/17/2017, Additional history exists Lipid Panel 12/30/2028 12/31/2023 Zoster Vaccines (1 of 2) 2052 Respiratory Syncytial Virus (RSV) 60 years and older and/or patients (1 - 1-dose 75+ series) 2077 Hepatitis B Vaccines Completed 01/09/2003, 2002, 2002 MMR Vaccines Completed 08/11/2006, 06/22/2003 Varicella Vaccines Completed 08/11/2006, 10/08/2003 Hepatitis A Vaccines Completed 08/15/2010, 11/29/2009, 02/09/2006, Additional history exists HPV Vaccines Completed 04/19/2015, 01/18/2014 Meningococcal Vaccine Aged Out 06/29/2016, 014 No longer eligible based on patient's age to complete this topic Meningococcal B Vaccine Completed 12/18/2020, 02/04 HIV Screening Completed 12/31/2023 Respiratory Syncytial Virus (RSV) <20 months Aged Out No longer eligible based on patient's age to complete this topic Procedures Procedure Name Priority Date/Time Associated Diagnosis Comments HIV ANTIBODY/ANTIGEN SCREEN Routine 12/31/2023 1:07 PM EDT Encounter to establish care Screening for endocrine, nutritional, metabolic and immunity disorder LIPID PANEL Routine 12/31/2023 1:07 PM EDT Encounter to establish care Screening for thyroid disorder from Last 3 Months or Most Recently Relevant to Health Maintenance Results * HIV-1 and HIV-2 antibodies (12/31/2023 1:07 PM EDT) [facility] HIV 1 2 Ag/Ab Negative Negative 01/01/2024 11:03 AM EDT [facility] Comment: Screen Negative, no further testing required. Performed by [facility] HIV Ag/Ab 1/2 Combo 4th generation chemiluminescent microparticle immunoassay (CMIA) Blood Venous blood specimen / Unknown Venipuncture / Unknown 12/31/2023 1:07 PM EDT 12/31/2023 1:12 PM EDT Krysta Stinson APRN, RN LAB BLOOD ORDERABL ES [facility] [address] [place] [address], * (ABNORMAL) Lipid Panel (12/31/2023 1:07 PM EDT) Triglycerides 277(H) 30 - 150 mg/dL ELECSYS ANTI-SARS -COV-2_RO JUNIOR DIAGNOSTI CS_EUA 01/01/2024 1:12 AM EDT [facility] Cholesterol, Total 147.00 <200.00 mg/dL ELECSYS ANTI-SARS -COV-2_RO JUNIOR DIAGNOSTI CS_EUA 01/01/2024 1:12 AM EDT [facility] HDL Cholesterol 29.00(L) >59.00 mg/dL ELECSYS ANTI-SARS -COV-2_RO JUNIOR DIAGNOSTI CS_EUA 01/01/2024 1:12 AM EDT [facility] LDL Cholesterol, Calc 62.6 50.0 - 99.0 mg/dL ELECSYS ANTI-SARS -COV-2_RO JUNIOR DIAGNOSTI CS_EUA 01/01/2024 1:12 AM EDT [facility] Chol/HDL Ratio 5.1(H) <=4.5 ELECSYS ANTI-SARS -COV-2_RO JUNIOR DIAGNOSTI CS_EUA 01/01/2024 1:12 AM EDT [facility] LDL/HDL Ratio 2.2 ELECSYS ANTI-SARS -COV-2_RO JUNIOR DIAGNOSTI CS_EUA 01/01/2024 1:12 AM EDT [facility] VLDL, Calculated 55(H) 5 - 40 mg/dL ELECSYS ANTI-SARS -COV-2_RO JUNIOR DIAGNOSTI CS_EUA 01/01/2024 1:12 AM EDT [facility] Non-HDL Cholesterol 118 <130 mg/dL ELECSYS ANTI-SARS -COV-2_RO JUNIOR DIAGNOSTI CS_EUA 01/01/2024 1:12 AM EDT [facility] Comment:Cardiac risk classif ication must take into account other factors such as history of prior ASCVD event, age, diabetes mellitus, hypertension, chronic kidney disease, current tobacco smoking and history of congestive heart failure among others. Blood Venous blood specimen / Unknown Venipuncture / Unknown 12/31/2023 1:07 PM EDT 12/31/2023 1:12 PM EDT Krysta Stinson APRN, RN LAB BLOOD ORDERABL ES [facility] [address] [place] [address], from Last 3 Months or Most Recently Relevant to Health Maintenance Care Teams Radiography Technician Relationship Specialty Start Date End Date Krysta Stinson APRN, RN PCP - General Urgent Care 12/31/23
[2024-09-28 08:59] VITALS: BP 144/86; PULSE 85; RESP 20; TEMP 35.8; O2SAT 96; BMI 38.1
--- OUTSIDE RECORDS SUMMARY | 2024-09-28 08:59 | XMS_ITS | Patient Health Record ---
Author Organization [facility] Address [address] [place] [address] Care Team Providers Care Healthcare Architect Name Role Phone Hussain Menendez Unavailable [phone] Allergies No Known Allergies Reason For Referral No Information Plan Of Treatment No Information Insurance Providers Payer Name Payer Address Payer Phone Subscriber Number Group Number Insured Name Patient Relationship to Insured Coverage Start Date Coverage End Date [facility] [place] [address] [id number] [place], [place] [id number] Darrin Hanson Self - patient is the insured
[2024-09-28 09:59] LABS: PCR FLU A Negative PCR FLU A (Negative); PCR FLU B POSITIVE PCR FLU B (Negative); PCR RSV Negative PCR RSV (Negative); SARS PCR* Negative SARS-CoV-2 (Negative)
--- NOTE | 2024-09-28 10:12 | ED.GENADULT ---
HPI - General Adult General Date Seen: 09/28/24 Chief complaint: Cough Stated complaint: chest pain, cough, ill for multiple days Time Seen by Provider: 09/28/24 10:12 History of Present Illness HPI narrative: 24-year-old male presenting to the ER today for illness ongoing for about 4 days, since Wednesday or so. Symptoms have included cough, nasal congestion, body aches, back pain, and achiness in his chest with coughing. Symptoms started 4 days ago on Wednesday with a mild tickle in his throat have gotten worse since then. Since yesterday he has also had some burning discomfort in his upper chest with coughing. Cough is largely nonproductive but occasionally productive of some yellow green sputum. No hemoptysis. He is not short of breath. He is not having vomiting or diarrhea. No rash. Several of his friends at school are also sick. He is generally healthy but does have a past medical history of familial hypertriglyceridemia so he takes [place] and atorvastatin for that. He has no other history of underlying heart or lung disease. He has nonsmoker but does occasionally smoke cigars, rarely. He has no history of diabetes or immunosuppression. Related Data Home Medications ?Medication ?Instructions ?Recorded ?Confirmed atorvastatin 10 mg tablet 20 mg PO DAILY 09/28/24 09/28/24 loratadine 10 mg tablet 10 mg PO DAILY 09/28/24 09/28/24 omega-3 acid ethyl esters 1 gram 2 cap PO BID 09/28/24 09/28/24 capsule omeprazole 20 mg capsule,delayed 20 mg PO QAM 09/28/24 09/28/24 release Previous Rx's ?Medication ?Instructions ?Recorded benzonatate 100 mg capsule 100 mg PO TID PRN cough #14 caps 09/28/24 Allergies Allergy/AdvReac Type Severity Reaction Status Date / Time No Known Drug Allergies Allergy Verified 06/18/23 11:33 Exam Const: Vital Signs, click to edit/add: Vital Signs - 24 hr 09/28/24 08:59 Temperature 96.5 F L Pulse Rate [Pulse Oximeter] 85 Respiratory Rate 20 Blood Pressure [Ri ght Upper Arm] 144/86 H Pulse Oximetry 96 Oxygen Delivery Me thod Room Air Course Course ED Course: Constitutional: Appears well-developed and well-nourished. Alert. Conversant. Non toxic. HENT: Head: Atraumatic. Nose: Nose normal. Mouth/Throat: Oral mucosa is clear and moist. no trismus. Pharynx normal. Tonsils symmetric. No tonsillar enlargement, erythema, or exudate. Eyes: Conjunctivae normal. EOM normal. Pupils equal, round, and reactive to light. No scleral icterus. Neck: Normal range of motion. Neck supple. No tracheal deviation present. No JVD. Cardiovascular: Normal rate, regular rhythm. No gallop. No friction rub. No murmur heard. Symmetric radial artery pulses Pulmonary/Chest: Effort normal. No stridor. No respiratory distress. No wheezes. No rales. No rhonchi . No tenderness. Abdominal: Soft. No distension. No mass. No tenderness. No rebound. No guarding. Musculoskeletal: RUE: Normal range of motion. No tenderness. No deformity LUE: Normal range of motion. No tenderness. No deformity RLE: Normal range of motion. No edema. No tenderness. No deformity LLE: Normal range of motion. No edema. No tenderness. No deformity. Neurological: Alert and oriented to person, place, and time. Normal strength. CN II-VII intact. No sensory deficit. GCS eye subscore is 4. GCS verbal subscore is 5. GCS motor subscore is 6. Normal coordination Skin: Skin is warm and dry. No rash noted. No pallor. Normal capillary refill. Psychiatric: Normal mood. Normal affect. Vital Signs Vital signs: Initial Vital Signs Temperature 96.5 F L 09/28/24 08:59 Temperature Source Temporal Artery Scan 09/28/24 08:59 Pulse Rate 85 09/28/24 08:59 Respiratory Rate 20 09/28/24 08:59 Blood Pressure 144/86 H 09/28/24 08:59 Blood Pressure Mean 105 09/28/24 08:59 Blood Pressure Position Sitting 09/28/24 08:59 Pulse Oximetry 96 09/28/24 08:59 Oxygen Delivery Method Room Air 09/28/24 08:59 Vital Signs Temperature 96.5 F L 09/28/24 08:59 Pulse Rate 85 09/28/24 08:59 Respiratory Rate 20 09/28/24 08:59 Blood Pressure 144/86 H 09/28/24 08:59 Pulse Oximetry 96 09/28/24 08:59 Oxygen Delivery Method Room Air 09/28/24 08:59 Temperature 96.5 F L 09/28/24 08:59 Pulse Rate 85 09/28/24 08:59 Respiratory Rate 20 09/28/24 08:59 Blood Pressure 144/86 H 09/28/24 08:59 Pulse Oximetry 96 09/28/24 08:59 Oxygen Delivery Method Room Air 09/28/24 08:59 Medical Decision Making MDM Narrative Medical decision making narrative: This patient presents for evaluation of cough, nasal congestion, body aches, headache, back pain, eye soreness, and chest tightness. Symptoms 1st started 4 days ago on Wednesday but it got worse over the past couple of days with were thinning body aches and some burning pain with disease only associated with coughing) in his chest. Symptoms are consistent with an upper respiratory tract infection. Viral testing positive for influenza B. Negative for COVID, RSV, flu away.. There is no signs at this point of serious bacterial infection such as OM, RPA, epiglottitis, SENIOR CLINICAL DATA COORDINATOR, strep pharyngitis, pneumonia, sinusitis, meningitis, bacteremia, serious bacterial infection. Given the chest pain we did obtain EKG to look for possible viral associated pericarditis or myocarditis. EKG shows no concerning findings. Incidentally does show evidence for voltage criteria for left ventricular hypertrophy. Suspect the chest pain is likely due to bronchial inflammation from influenza Given clear lungs, fever curve, no hypoxia and no respiratory distress I do not feel a CXR is indicated at this point as the probability of bacterial pneumonia is very unlikely. There are no gastrointestinal symptoms at this point and no signs of dehydration. At this point he is outside the window where he would likely benefit from Tamiflu. He does not have any high risk category is to suggest he is at risk for severe illness and therefore per CDC guidelines would hold off on Tamiflu for now. Close followup with primary care physician is indicated. Discussed isolation precautions. Return to ED for fever > 103, protracted vomiting, confusion, or other worsening. Lab Data Labs: Lab Results 09/28/24 Range/Units 09:03 SARS-CoV-2 (PCR) Negative SARS-CoV-2 (Negative) Influenza Type A (PCR) Negative PCR FLU A (Negative) Influenza Type B (PCR) POSITIVE PCR FLU B A (Negative) RSV (PCR) Negative PCR RSV (Negative) ECG Data Attestation: I personally reviewed and interpreted this ECG as follows: Interpretation: Normal sinus rhythm Rate: 76 SC: 137 QRS axis: Left ventricle hypertrophy. ST segment/T wave: No ST segment elevation or depression. QTc: 400 Discharge Plan Discharge Clinical Impression: Influenza B Patient Disposition: Home, Self-Care Condition: Stable Instructions: Influenza (DC) Additional Instructions: As we discussed, please come back to the ER right away if you have worsening pain in her chest, trouble breathing, high fevers, weakness, confusion, or any other problems. Usually influenza will last for about a week. You should stay home until you have been afebrile for 24 hours and overall are feeling better. Prescriptions: New benzonatate 100 mg capsule 100 mg PO TID PRN (Reason: cough) Qty: 14 0RF No Action atorvastatin 10 mg tablet 20 mg PO DAILY omeprazole 20 mg capsule,delayed release(DR/EC) 20 mg PO QAM loratadine 10 mg tablet 10 mg PO DAILY omega-3 acid ethyl esters 1 gram capsule 2 cap PO BID Follow Up/Referrals: Juliano Martinez MD [Primary Care Provider] - Stand Alone Forms: Work/School Release, [facility] Info Instructions
--- OUTSIDE RECORDS SUMMARY | 2024-09-28 11:18 | XMS_ITS | Clinical Summary ---
Author Organization [facility] [facility] Address [address] [place] [address] Care Team Providers Care Precision Assembly Inspector Name Role Phone Pcp, No Primary Care Provider Unavailabl e Allergies No known active allergies Medications atorvastatin (LIPITOR) 10 mg tablet Take 1 Tablet (10 mg) by mouth at bedtime. 0 05/19/2021 Active cetirizine (ZYRTEC) 10 mg tablet TAKE 1 TABLET BY MOUTH ONCE DAILY FOR 90 DAYS 05/15/2022 Active Active Problems Problem Noted Date Diagnosed Date Hypercholesterolemia 10/29/2022 Hyperlipidemia, unspecified 10/29/2022 Concussion without loss of consciousness 021 Overview (05/20/2021): Apr 2021. Environmental allergies 05/20/2021 Social History Tobacco Use Types Packs/Day Years Used Date Smoking Tobacco: Never Smokeless Tobacco: Never Tobacco Cessation:Counseling Given: Not Answered Alcohol Use Standard Drinks/Week Comments Not Currently 0 (1 standard drink = 0.6 oz pur e alcohol) Social Connections Answer Date Recorded Frequency of Communication with Friends and Fami ly Not on file 10/29/2022 Sex and Gender Information Value Date Recorded Sex Assigned at Not on file Legal Sex Male 2:04 PM CDT Gender Identity Not on file Sexual Orientation Not on file Obstetrics History Last Filed Vital Signs Vital Sign Reading Time Taken Comments Blood Pressure 138/88 10/29/2022 1:30 PM CDT Pulse 103 10/29/2022 11:24 AM CDT Temperature 36.6 C (97.8 F) 10/29/2022 11:24 AM CDT Respiratory Rate - - Oxygen Saturation 99% 10/29/2022 11: 24 AM CDT Inhaled Oxygen Concentration - - Weight 118.1 kg (260 lb 6.4 oz) 023 11:24 AM CDT Height - - Body Mass Index - - Plan of Treatment Health Maintenance Due Date Last Done Comments Tdap 2013 Depression screening for age 12+ 2014 HIV for age 15-65 2017 HPV series for age 9-26 (1 - Male 3-dose series) 2017 BMI (ht and wt on same day) for age 18+ 2020 Hepatitis C screening for ag e 18-79 2020 Tetanus booster 2022 COVID-19 vaccine series (2023- season) 2024 Influenza Vaccine (#1) 2024 Pneumococcal series for age 6-49 Aged Out No longer eligible based on patient's age to complete this topic Insurance [employer] Care Teams Precision Assembly Inspector Relationship Specialty Start Date End Date Pcp, No . PCP - General 03/07/21
--- OUTSIDE RECORDS SUMMARY | 2024-09-28 11:19 | XMS_ITS | Patient Health Record ---
Author Organization [facility] Address [address] [place] [address] Care Team Providers Care Flare Breaker Name Role Phone Jensen Cleaning Primary Care Provider Allergies No Known Allergies Reason For Referral No Information Medications Medication SIG (Take, Route, Frequency, Duration) Notes Start Date End Date Status Ventolin HFA 108 (90 Base) MCG/ACT 1 puff as needed Inhalation every 4 hrs for 30 days 07/09/2022 Active Clovis 3 1000 MG 1 capsule Orally Onc e a day for 30 day(s) Active Gemfibrozil 600 MG 1 tablet 30 minutes before morning and evening meals Orally Twice a day for 30 day(s) 07/10/2022 Active Immunizations Vaccine Route Administration Date Status Comme nts Covid-19 Pfizer Unknown 10/26/2020 Administered Covid-19 Pfizer Unknown 11/16/2020 Administered Covid-19 Pfizer Unknown 06/09/2021 Administered DAPTACEL Unknown 2002 Administered DAPTACEL Unknown 2002 Administered DAPTACEL Unknown 01/09/2003 Administered DAPTACEL Unknown 10/08/2003 Administered DAPTACEL Unknown 08/11/2006 Administered flulaval quadrivalent IM Intramuscular 07/17/2017 Administered flulaval quadrivalent IM Intramuscular 04/25/2018 Administered flulaval quadrivalent SC Subcutaneous 04/10/2019 Administered FLUZONE 0.5 mL QUADRIVALENT IM Intramuscular 04/19/2015 Administered FLUZONE 0.5 mL QUADRIVALENT IM Intramuscular 06/29/2016 Administered FLUZONE 0.5 mL QUADRIVALENT IM Intramuscular 06/04/2021 Administered IT WAS GIVEN PRIVATE TO HIM, BECAUSE I REACHED THE MAXIMUM AGE BY HRV HEP A Unknown 08/11/2005 Administered HEP A Unknown 02/09/2006 Administered HEP A Unknown 11/29/2009 Administered HEP A Unknown 08/15/2010 Administered Hep B Unknown 2002 Administered Hep B Unknown 01/09/2003 Administered HIB UNK Unknown 2002 Administered HIB UNK Unknown 04/05/2003 Administered HIB UNK Unknown 06/22/2003 Administered HPV Unknown 01/18/2014 Administered HPV IM Intramuscular 04/19/2015 Administered IPV Unknown 2002 Administered IPV Unknown 2002 Administered IPV Unknown 01/09/2003 Administered IPV Unknown 08/11/2006 Administered mcv4 Unknown 01/18/2014 Administered Menactra IM Intramuscular 06/29/2016 Administered MMR Unknown 06/22/2003 Administered MMR Unknown 08/11/2006 Administered TDAP (BOOSTRIX) Unknown 02/23/2014 Administered Trumenba IM Intramuscular 02/04/2019 Administered Trumenba IM Intramuscular 12/18/2020 Administered VARIVAX/VZV Unknown 10/08/2003 Administered VARIVAX/VZV Unknown 08/11/2006 Administered zComvax Unknown 2002 Administered zPCV-7 (PNUE-CONJU) Unknown 2002 Administered zPCV-7 (PNUE-CONJU) Unknown 04/05/2003 Administered zPCV-7 (PNUE-CONJU) Unknown 06/22/2003 Administered Problems Problem Type SNOMED Code ICD Code Onset Dates Problem Status W/U Status Risk Notes Problem Gastroesophageal reflux disease (704561215) GERD (gastroesophageal reflux disease) (K21.9) Active confirmed Problem Hypertension (22528518) Hypertension (I10) Active confirmed Problem Morbid obesity (732452180) Morbid obesity (E66.01) Active confirmed Problem Hypertriglyceridemia (182381767) Hypertriglyceridemia (E78.1) Active confirmed Problem Hypercholesterolemia (04421391) Hypercholesterolemia (E78.00) Active confirmed Problem Dyslipidemia (598292021) Dyslipidemia (E78.5) Active confirmed Problem Fatty liver (280951780) Fatty liver (K76.0) Active confirmed Plan Of Treatment Pending Test Test Name Order Date Ultrasound Abdomen 08/01/2018 X ray Scoliosis Survey 02/04/2019 Ferritin, Serum 12/12/2019 Ferritin, Serum 12/18/2020 Hemoglobin 04/19/2015 Insulin, Free and Total, Serum 1 Chlamydia &.N gonorrhoeae DNA,SDA,URINE 07/17/2017 COMPREHENSIVE METABOLIC PANEL W/eGFR 12/2017 COMPREHENSIVE METABOLIC PANEL W/eGFR 03/2015 CHLAMYDIA/N. GONORRHOEAE DNA, SDA 2019 CBC (H/H, RBC, INDICES, WBC, PLT) 2019 CBC (H/H, RBC, INDICES, WBC, PLT) 2018 GLUCOSE 06/29/2016 HEMOGLOBIN A1c 12/12/2019 HEMOGLOBIN A1c 07/17/2017 URINALYSIS, COMPLETE 07/17/2017 INSULIN 07/17/2017 CBC (INCLUDES DIFF/PLT) 07/17/2017 CBC (INCLUDES DIFF/PLT) 06/29/2016 LIPID PANEL 04/19/2015 LIPID PANEL 06/29/2016 LIPID PANEL 07/17/2017 T4, FREE 06/29/2016 TSH, 3RD GENERATION 06/29/2016 TSH, 3RD GENERATION 04/19/2015 TSH, 3RD GENERATION 12/12/2019 URINALYSIS, COMPLETE 04/19/2015 URINALYSIS, COMPLETE 06/29/2016 HEARING SCREEN 06/29/2016 HEARING SCREEN 04/19/2015 VISION SCREEN 04/19/2015 VISION SCREEN 02/04/2019 VISION SCREEN 06/29/2016 VISION SCREEN 12/18/2020 HIV-1, RNA, Quantitative PCR 02/14/2021 LIPID PANEL 12/12/2019 COMPREHENSIVE METABOLIC PANEL W/O eGFR 0 12/12/2019 URINALYSIS, COMPLETE W/REFLEX TO CULTURE 12/12/2019 THYROID PANEL 12/12/2019 CHLAMYDIA/N. GONORRHOEAE RNA, TMA, URINE 02/14/2021 Hemoglobin A1c 11/05/2020 Comp. Metabolic Panel (14) 11/05/2020 COVID-19 07/17/2020 hemoglobin electrophoresis 01/16/2021 hemoglobin electrophoresis 01/16/2021 Insurance Providers Payer Name Payer Address Payer Phone Subscriber Number Group Number Insured Name Patient Relationship to Insured Coverage Start Date Coverage End Date [facility] Healthcare Plans Medicaid [address] [address] [place] [address] [id number] Darrin Hanson Self - patient is the insured Medications Administered Medication Instructions Date of Administration Dosage Notes Ondansetron 2mg/mL 10/15/2017 4 mg Medical (General) History Medical History History ICD Code high cholesterol scolisis since 10 years old brass on at back 20 on the top and 16 on the bottom Scoliosis M41.9 Acid reflux K21.9 Sinusitis J32.9 GERD (gastroesophageal reflux disease) K 21.9 Allergic rhinitis J30.9 Hyperlipemia E78.5 Surgical History Surgery Date(Month/Year)
--- OUTSIDE RECORDS SUMMARY | 2024-09-28 11:19 | XMS_ITS | Encounter Summary ---
Author Organization [facility] Address [address] [place] [address] Care Team Providers Care Electrical Journeyman Name Role Phone Stefano Musa DO Primary Care Provider [phone] Reason for Visit * Reason Comments Follow-up * Outpatient (Routine) - Pending Review Specialty Diagnoses / Procedures Referred By Contac t Referred To Contact Hand Surgery / Orthopaedic Surgery Diagnoses EST RT SHOULDER / NAGHA Procedures ESTABLISHED PATIENT Stefano Musa DO [address] [place] [address] Phone: tel: fax: Cong Leal MD [address] [address] Phone: tel: fax: Referral ID Status Reason Start Date Expiration Date V isits Requested Visits Authorized [id number] Pending Review 08/14/2024 08/15/2025 12 12 Encounter Details Date Type Department Care Team (Late st Contact Info) Description 08/14/2024 9:00 AM EST Office Visit [facility] [place] [address] [place] [address] Cong Leal MD [address] [id number] Labral tear of shoulder, right, initial encounter [...] How often do you attend chur or zoroastrianism services? Patient declined 07/06/2023 Do you belong to any clubs o r organizations such as amish groups, unions, fraternal or athletic groups, or [...] medical care, and heating? Patient declined 07/06/2023 [facility] - Occupational Stress [...] place to sleep or slept in a [place] [facility] [place] (including now)? Patient refused 07/06/2023 Caregiver Education [...] as-needed basis. Dictated By: BANDAR WESTBROOK - [id number] 08/14/2024 09:00:28 AM 08/14/2024 09:10:23 AM Docked: [id number] Receipt Code: [id number] CC: documented in this encounter Plan of Treatment Not on file documented as of this encounter Goals Goal Patient Goal Type Associated Problems Recent Progress Patient-Stated? Author [P.T. LTG] x 12 visits Physical Therapy: Financial Business Analyst Goal No Dena Barrios PT Note: Patient will demonstrate independence in comprehensive HEP to facilitate independence upon discharge. [P.T. LTG] x 12 visits Physical Therapy: Financial Business Analyst Goal No Dena Barrios PT Note: Patient will demonstrate ability to tolerate resistance at end range upright ER and IR to facilitate progress toward nursing home goals. [P.T. LTG] x 12 visits Physical Therapy: Care Home Goal No Dena Barrios PT Note: [...] onset of pain to facilitate progress toward nursing home goals. documented as of this encounter Visit Diagnoses Diagnosis Labral tear of shoulder, right, initial encounter- Primary Periscapular pain of right shoulder documented in this encounter Care Teams Electrical Journeyman Relationship Specialty Start Date End Date Stefano Musa DO [address] [place] [address] PCP - General Family Medicine 06/28/23 documented as of this encounter
--- OUTSIDE RECORDS SUMMARY | 2024-09-28 11:19 | XMS_ITS | Clinical Summary ---
Author Organization [facility] [place] Address [address] [place] [address] Phone Care Team Providers Care Pediatric Dermatologist Name Role Phone Jensen Cleaning MD Primary Care Provider [phone] Allergies No known active allergies Medications Cetirizine HCl (ZYRTEC PO) Take by mouth as needed. Active PROAIR HFA 108 (90 BASE) MCG/ACT inhalerIndicati ons:Exercise-in duced shortness of breath Inhale 2 Puffs every 4 hours as needed for Wheezing. 2 Inhaler 2 6 Active [employer] VITAMIN D3 1000 UNITS capsuleIndicati ons:Acquired acanthosis nigricans,Dysli pidemia,Excessi ve weight gain,FELIPE (obstructive sleep apnea) TAKE ONE CAPSULE BY MOUTH EVERY DAY 30 Cap 1 7 Active omeprazole delayed release (PRILOSEC) 10 mg capsule GIVE DARRIN 1 CAPSULE BY MOUTH DAILY 30 Cap 2 7 Active Promethazine HCl (PHENERGAN INJ) by Injection route. Active prochlorperazin e (COMPAZINE) 5 mg tablet 1 tablet 3 times daily WITH MEALS as needed for headache (take with Tylenol, Ibuprofen & Benadryl) 45 Tab 8 Active atorvaSTATin (LIPITOR) 10 mg tablet 9 Active loratadine (CLARITIN) 10 mg tablet 9 Active [place]-3 Fatty Acids ([employer]S NATURAL FISH OIL) 1000 MG CAPS Take 1,000 mg by mouth daily. 30 Cap 11 0 Active metFORMIN (GLUCOPHAGE) 850 mg tablet Take 1 Tab by mouth twice daily (with meals). 60 Tab 5 0 Active Active Problems Problem Noted Date Diagnosed Date Medically complex patient 10/19/2019 Chest pain 03/29/2017 Morbid obesity due to excess calories [E66.01] 0 01/07/2016 Dietary counseling and surveillance 01/07/2016 Exercise counseling 01/07/2016 Screening for hypertension 01/07/2016 Other and unspecified hyperlipidemia 01/07/2016 Mild intermittent asthma without complication [J 45.20] 01/07/2016 Gastroesophageal reflux disease without esophagi tis [K21.9] 01/07/2016 Vitamin D deficiency 01/07/2016 Reflux esophagitis 01/07/2016 Chronic allergic rhinitis 07/25/2015 Exercise-induced shortness of breath 07/25/2015 Nausea with vomiting 05/24/2015 Abdominal pain, epigastric 05/24/2015 FELIPE (obstructive sleep apnea) 05/22/2015 Acquired acanthosis nigricans 02/08/2015 Dyslipidemia 02/08/2015 Hypertriglyceridemia 02/08/2015 Excessive weight gain 02/08/2015 Flat feet 01/18/2015 Scoliosis 01/18/2015 Obesity 01/04/2015 Elevated BP without diagnosis of hypertension Family History Medical History Relation Comments Murmur Brother 1 Hyperlipidemia Brother 2 Asthma Brother 3 Gastroesophageal Reflux Father Hyperlipidemia Father Hypertension Father Coronary Artery Disease Maternal Grandfather Diabetes Maternal Grandfather Heart Disease Maternal Grandfather Heart Surgery Maternal Grandfather Hyperlipidemia Maternal Grandfather Hypertension Maternal Grandfather Syncope Maternal Grandfather Arrhythmia Maternal Grandmother Asthma Maternal Grandmother Diabetes Maternal Grandmother Heart Disease Maternal Grandmother Hyperlipidemia Maternal Grandmother Hypertension Maternal Grandmother Polyps Maternal Grandmother Sleep Disorders Maternal Grandmother Urinary Tract Infection Maternal Grandmother Coronary Artery Disease Maternal Uncle 1 Heart Failure Maternal Uncle 1 Pacemaker Maternal Uncle 1 Stroke Maternal Uncle 2 Heart Surgery Maternal Uncle 3 Diabetes Maternal Uncle 4 Dialysis Maternal Uncle 5 Gastrointestinal Disease Maternal Uncle 6 Anemia Mother Hyperlipidemia Mother Hypertension Mother Kidney Stones Mother Sleep Disorders Mother Asthma Paternal Aunt Diabetes Paternal Aunt Diabetes Paternal Grandfather Hyperlipidemia Paternal Grandfather Asthma Paternal Grandmother Diabetes Paternal Grandmother Hyperlipidemia Paternal Grandmother Stroke Paternal Grandmother Diabetes Paternal Uncle Bleeding Problems No Family History Cardiomyopathy No Family History Congenital Hearing Loss No Family History Congenital Heart Defect No Family History Diabetes Type I No Family History Diabetes Type II No Family History Hematuria No Family History Kidney Disease No Family History Lipids No Family History Long QT Syndrome No Family History Seizures No Family History Sickle Cell Anemia No Family History Systemic Lupus Erythematosis No Family History Thyroid Disease No Family History Unexplained Sudden No Family History Relation Status Comments Brother 1 Brother 2 Brother 3 Father Maternal Grandfather Maternal Grandmother Maternal Uncle 1 Maternal Uncle 2 Maternal Uncle 3 Maternal Uncle 4 Maternal Uncle 5 Maternal Uncle 6 Mother Paternal Aunt Paternal Grandfather Paternal Grandmother Paternal Uncle Social History Tobacco Use Types Packs/Day Years Used Date Smoking Tobacco: Never Smokeless Tobacco: Never Alcohol Use Standard Drinks/Week Comments No 0 (1 standard drink = 0.6 oz pur e alcohol) Food Insecurities Answer Date Recorded In the past 6 months, were t here times the food you bought didn't last and you didn't have money to buy more? Not on file Sex and Gender Information Value Date Recorded Sex Assigned at Not on file Legal Sex Male 9:48 PM EST Gender Identity Not on file Sexual Orientation Not on file Last Filed Vital Signs Vital Sign Reading Time Taken Comments Blood Pressure 142/89 05/30/2020 7:12 PM EST Pulse 92 05/30/2020 7:12 PM EST Temperature 36.4 C (97.6 F) 05/30/2020 7:12 PM EST Respiratory Rate 18 05/30/2020 7:12 PM EST Oxygen Saturation 98% 03/31/2017 2:00 PM EDT Inhaled Oxygen Concentration - - Weight 104.1 kg (229 lb 8 oz) 05/30/2020 7:11 PM EST Height 176.4 cm (5' 9.45) 05/22/2019 9:47 AM ES T Body Mass Index 33.45 05/22/2019 9:47 AM EST Plan of Treatment Health Maintenance Due Date Last Done Comments COVID-19 VACCINE ( season) 2024 06/09/2021, 11/16/2020, 10/26/2020 INFLUENZA VACCINE (SPECIALTY CARE) (#1) 2024 06/04/2021, 04/25/2018, 07/17/2017, Additional history exists HPV VACCINES NEMOURS Completed 04/19/2015, 01/19/20 14 MENINGOCOCCAL VACCINE (SPECIALTY CARE) Aged Out 06/29/2016, 01/18/2014 No longer eligibl e based on patient's age to complete this topic Insurance Care Teams Pediatric Dermatologist Relationship Specialty Start Date End Date Jensen Cleaning MD [employer] [place] [address] PCP - General Primary Care Pediatrics 12/20/15
--- OUTSIDE RECORDS SUMMARY | 2024-09-28 11:19 | XMS_ITS | Clinical Summary ---
Author Organization [facility] Address [address] [place] [address] Care Team Providers Care Billet Heater Operator Name Role Phone Krysta Stinson APRN, RN Primary Care Provider [phone] Allergies No known active allergies Medications Medication [...] and HIV-2 antibodies (12/31/2023 1:07 PM EDT) [facility] HIV 1 2 Ag/Ab Negative Negative 01/01/2024 11:03 AM EDT [facility] [place] Comment: Screen Negative, no further testing required. Performed by [facility] HIV Ag/Ab 1/2 Combo 4th generation chemiluminescent microparticle immunoassay (CMIA) Blood Venous blood specimen / Unknown Venipuncture / Unknown 12/31/2023 1:07 PM EDT 12/31/2023 1:12 PM EDT Krysta Stinson APRN, RN LAB BLOOD ORDERABL ES [facility] [address] [place] [address], * (ABNORMAL) Lipid Panel (12/31/2023 1:07 PM EDT) Triglycerides 277(H) 30 - 150 mg/dL ELECSYS ANTI-SARS -COV-2_RO JUNIOR DIAGNOSTI CS_EUA 01/01/2024 1:12 AM EDT [facility] Cholesterol, Total 147.00 <200.00 mg/dL ELECSYS ANTI-SARS -COV-2_RO JUNIOR DIAGNOSTI CS_EUA 01/01/2024 1:12 AM EDT [facility] HDL Cholesterol 29.00(L) >59.00 mg/dL ELECSYS ANTI-SARS -COV-2_RO JUNIOR DIAGNOSTI CS_EUA 01/01/2024 1:12 AM EDT [facility] LDL Cholesterol, Calc 62.6 50.0 - 99.0 mg/dL ELECSYS ANTI-SARS -COV-2_RO JUNIOR DIAGNOSTI CS_EUA 01/01/2024 1:12 AM EDT [facility] Chol/HDL Ratio 5.1(H) <=4.5 ELECSYS ANTI-SARS -COV-2_RO JUNIOR DIAGNOSTI CS_EUA 01/01/2024 1:12 AM EDT [facility] LDL/HDL Ratio 2.2 ELECSYS ANTI-SARS -COV-2_RO JUNIOR DIAGNOSTI CS_EUA 01/01/2024 1:12 AM EDT [facility] VLDL, Calculated 55(H) 5 - 40 mg/dL ELECSYS ANTI-SARS -COV-2_RO JUNIOR DIAGNOSTI CS_EUA 01/01/2024 1:12 AM EDT [facility] Non-HDL Cholesterol 118 <130 mg/dL ELECSYS ANTI-SARS -COV-2_RO JUNIOR DIAGNOSTI CS_EUA 01/01/2024 1:12 AM EDT [facility] Comment:Cardiac risk classif ication must take into account other factors such as history of prior ASCVD event, age, diabetes mellitus, hypertension, chronic kidney disease, current tobacco smoking and history of congestive heart failure among others. Blood Venous blood specimen / Unknown Venipuncture / Unknown 12/31/2023 1:07 PM EDT 12/31/2023 1:12 PM EDT Krysta Stinson APRN, RN LAB BLOOD ORDERABL ES [facility] [address] [place] [address], from Last 3 Months or Most Recently Relevant to Health Maintenance Care Teams Billet Heater Operator Relationship Specialty Start Date End Date Krysta Stinson APRN, RN PCP - General Urgent Care 12/31/23
--- OUTSIDE RECORDS SUMMARY | 2024-09-28 11:19 | XMS_ITS | Clinical Summary ---
Author Organization [facility] Address [address] [place] [address] Care Team Providers Care Hosiery Mender Name Role Phone Stefano Musa Primary Care Provider [phone] Allergies No known active allergies Medications atorvastatin [...] Description 08/14/2024 9:00 AM EST Office Visit [facility] [place] [address] [facility], [address]th [place] [address] Cong Leal MD Labral tear [...] often do you attend chur ch or christian services? Patient declined 07/06/2023 Do you belong to any clubs o r organizations such as presybeterian groups, unions, fraternal or athletic groups, or [...] medical care, and heating? Patient declined [facility] - Occupational Stress Questionnaire Answer Date [...] place to sleep or slept in a [facility] (including now)? Patient refused 07/06/2023 Caregiver Education [...] [P.T. LTG] x 12 visits Physical Therapy: Assisted Goal No Dena Barrios, PT Note: Patient will demonstrate independence in comprehensive HEP to facilitate independence upon discharge. [P.T. LTG] x 12 visits Physical Therapy: Assisted Goal No Dena Barrios, PT Note: Patient will demonstrate ability to tolerate resistance at end range upright ER and IR to facilitate progress toward long term care administrator goals. [P.T. LTG] x 12 visits Physical Therapy: Transistor Tester Goal No Dena Barrios, PT Note: Patient [...] onset of pain to facilitate progress toward long term care administrator goals. Medical Devices Implanted Type Area Jig Builder Device Identifier Shelf Expiration Date Model / Serial / Lot [place] Suture Fibertak 1.8mm Knotless Soft Gen2 - Sna - [id number] Implanted:Qt y: 3 on 08/17/2023 by Cong Leal MD at [facility]plant - Other Right: Shoulder ARTHREX [id number] 05/11/2028 [id number] / NA / [id number] Insurance [employer] Care Teams Hosiery Mender Relationship Specialty Start Date End Date Stefano Musa DO [address] [place] [address] PCP - General Family Medicine 06/28/23
== END 2024-09-28 11:20 | disposition home or self-care (01) ==
LOC: ED 11:15
PROVIDERS: Emergency Provider Emergency Medicine; PCP Family Medicine
DX: J10.1 Influenza due to other identified influenza virus with other respiratory manifestations (principal); R05.9 Cough, unspecified
CPT/HCPCS: 87631; 99283; 99284